=== PATIENT | male | born 1980 | race African-American/Black ===

== ENCOUNTER 2019-01-23 09:17 | Emergency (ER) | payer BC, SELFPAY ==
[2019-01-23] MEDS ORDERED: Fluorescein Opthalmic Strip ONE (10:05)
[2019-01-23] MEDS ORDERED: Proparacaine 0.5% Opth 15 ML BOT ONE (10:05)
== END 2019-01-23 10:58 | disposition home or self-care (01) ==
LOC: ERS 09:17
DX: S05.02XA Injury of conjunctiva and corneal abrasion without foreign body, left eye, initial encounter (principal); H20.9 Unspecified iridocyclitis; F17.210 Nicotine dependence, cigarettes, uncomplicated; W25.XXXA Contact with sharp glass, initial encounter
CPT/HCPCS: 99283

== ENCOUNTER 2023-07-02 19:00 | Emergency (ER) | payer SELFPAY ==
[2023-07-02 19:54] LABS: SARS-CoV-2 NAA Rapid Test Not Detected (NotDetected)
[2023-07-02] MEDS ORDERED: Ibuprofen 200 MG TAB ONE (20:10)
[2023-07-02] MEDS ORDERED: Acetaminophen 500 MG TAB ONE (20:10)
== END 2023-07-02 21:36 | disposition home or self-care (01) ==
LOC: ERS 19:00
DX: J10.1 Influenza due to other identified influenza virus with other respiratory manifestations (principal); F17.210 Nicotine dependence, cigarettes, uncomplicated
CPT/HCPCS: 87081; 87430; 99283

== ENCOUNTER 2023-12-10 15:35 | Emergency (ER) | payer SELFPAY ==
[2023-12-10] MEDS ORDERED: Ondansetron PF 4 MG/2 ML Vial ONE (17:44)
[2023-12-10] MEDS ORDERED: Ondansetron ODT 4 MG TAB ONE (18:04)
[2023-12-10] MEDS ORDERED: Dicyclomine 20 MG/2 ML VIAL ONE (18:04)
== END 2023-12-10 18:15 | disposition home or self-care (01) ==
LOC: ERS 15:35
DX: R11.2 Nausea with vomiting, unspecified (principal); F17.210 Nicotine dependence, cigarettes, uncomplicated
CPT/HCPCS: 96372; 99283; J2405; Q0162

== ENCOUNTER 2025-03-27 07:02 | Emergency (ER) | payer OTHER, SELFPAY ==
[2025-03-27] MEDS ORDERED: Lidocaine Viscous Sol 2% 15 ml UD Cup ONE (07:48)
[2025-03-27] MEDS ORDERED: Acetaminophen 500 MG TAB ONE (08:17)
[2025-03-27 10:17] LABS: #Basophils Less than 0.03 10x3/uL (0.0-0.2); #Eosinophils 0.08 10x3/uL (0.0-0.7); #Monocytes 0.37 10x3/uL (0.11-0.59); #Neutrophils 5.72 10x3/uL (1.40-6.50); %Basophils 0.1 % (0.0-1.0); %Eosinophils 1.0 % (0.0-10.0); %Lymphocytes 20.8 % (21.0-51.0); %Monocytes 4.7 % (0.0-10.0); %Neutrophils 73.0 % (42.0-75.0); Hematocrit 40.7 % (42.0-52.0); Hemoglobin 12.7 g/dL (14.0-18.0); Mean Corpuscular Hemoglobin 27.3 pg (27.0-31.0); Mean Corpuscular Volume 87.5 fL (78.0-98.0); Platelet Count 316 10x3/uL (130-400); Red Blood Cell (RBC) Count 4.65 mill/uL (4.70-6.10); White Blood Cell (WBC) Count 7.84 10x3/uL (4.8-10.8)
[2025-03-27 10:26] LABS: INR-International Normal Ratio 1.0; Prothrombin Time 13.6 sec (12.0-14.7)
[2025-03-27 10:27] LABS: PTT 38.4 sec (22.9-36.1)
[2025-03-27 10:33] LABS: ALT (SGPT) 18 U/L (Less than 45); AST (SGOT) 30 U/L (11-34); Albumin 4.3 g/dL (3.1-4.5); Alkaline Phosphatase 51 U/L (40-110); Anion Gap 13 mmol/L (10-20); BUN (Urea Nitrogen) 8 mg/dL (8.9-20.6); Bilirubin, Total 0.6 mg/dL (0.3-1.2); Calc. Creatinine Clearance 0 mL/min (70-130); Calcium 9.1 mg/dL (7.8-10.44); Carbon Dioxide 24 mmol/L (22-29); Chloride 107 mmol/L (98-107); Globulin 3.0 g/dL (2.4-3.5); Glucose 122 mg/dL (70-105); Potassium 4.0 mmol/L (3.5-5.1); Sodium 140 mmol/L (136-145)
== END 2025-03-27 11:00 | disposition home or self-care (01) ==
LOC: ERS 07:02
DX: K08.89 Other specified disorders of teeth and supporting structures (principal); K04.01 Reversible pulpitis; I10 Essential (primary) hypertension; F17.210 Nicotine dependence, cigarettes, uncomplicated
CPT/HCPCS: 64400; 70450; 80053; 84484; 85025; 85610; 85730; 93005; J0665